=== PATIENT | female | born 1980 | race Caucasian/White ===

== ENCOUNTER 2017-05-08 05:20 | Day surgery (SDC) | payer MEDICAID ==
[2017-05-08] VITALS (12 sets, daily range): BP systolic 98–117; BP diastolic 57–72; PULSE 71–98; RESP 13–21; Ht 154.9 cm; Wt 83.4 kg
[~2017-05-08] VITALS: Ht 154.9 cm; Wt 83.4 kg
[2017-05-08] MEDS ORDERED: CEFAZOLIN 2 GM/50 ML (PMX) 50 ML IVPB SCH (06:00)
[2017-05-08] MEDS ORDERED: LACTATED RINGER'S 1,000 ML IV SCH (06:00)
[2017-05-08] MEDS ORDERED: ATROPINE 1 MG/10 ML SYRINGE IV PRN (06:30)
[2017-05-08] MEDS ORDERED: EPHEDrine SULFATE 50 MG/5 ML SYG IV PRN (06:30)
[2017-05-08] MEDS ORDERED: LABETALOL HCL 20MG INJ IV PRN (06:30)
[2017-05-08] MEDS ORDERED: ONDANSETRON 4 MG INJ IV PRN (06:30)
[2017-05-08] MEDS ORDERED: MEPERIDINE 25 MG INJ IV PRN (06:30)
[2017-05-08] MEDS ORDERED: OXYCODONE/ACETAMINOPHEN (5/325) TAB PO PRN ×2 (06:30)
[2017-05-08] MEDS ORDERED: hydrALAzine 20 MG INJ IV PRN (06:30)
[2017-05-08] MEDS ORDERED: FENTAnyl 50 MCG/ML VIAL IV PRN ×2 (06:30)
[2017-05-08] MEDS ORDERED: HYDROmorphONE (0.2 MG/ML) 10ML SYG IV PRN ×3 (06:30)
[2017-05-08] MEDS ORDERED: DIPHENHYDRAMINE 50 MG INJ IV PRN (06:30)
[2017-05-08] MEDS ORDERED: MIDAZOLAM 1 MG/ML 2 ML INJ IV PRN (06:30)
[2017-05-08] MEDS ORDERED: morphine (1 MG/ML) 10ML SYRINGE IV PRN ×3 (06:30)
[2017-05-08] MEDS ORDERED: ROCURONIUM 50 MG INJ ONE (06:33)
[2017-05-08] MEDS ORDERED: PROPOFOL 20 ML ONE (06:33)
[2017-05-08] MEDS ORDERED: LIDOCAINE 2% (SDV) 5 ML INJ ONE (06:33)
[2017-05-08] MEDS ORDERED: GLYCOPYRROLATE 0.4 MG INJ ONE (06:33)
[2017-05-08] MEDS ORDERED: NEOSTIGMINE 3 MG/3 ML SYRINGE ONE (06:34)
[2017-05-08] MEDS ORDERED: MIDAZOLAM 1 MG/ML 2 ML INJ ONE (06:34)
[2017-05-08] MEDS ORDERED: FENTAnyl 50 MCG/ML VIAL ONE (06:34)
[2017-05-08] MEDS ORDERED: DEXAMETHASONE 4 MG/ML 1 ML INJ ONE (06:35)
[2017-05-08] MEDS ORDERED: ONDANSETRON 4 MG INJ ONE (06:35)
[2017-05-08] MEDS ORDERED: CEFAZOLIN 1 GM INJ ONE (07:00)
[2017-05-08] MEDS ORDERED: KETOROLAC 30 MG INJ ONE (08:10)
--- NOTE | 2017-05-08 08:41 | OPR ---
Date/Time of Note Date/Time of Note DATE: 05/08/17 TIME: 08:38 Operative Report Procedure Date: May 08, 2017 Preoperative Diagnosis Patient desires permanent sterilization by Essure hysteroscopic sterilization program. Postoperative Diagnosis Patient desires permanent sterilization by Essure hysteroscopic sterilization program. Operation/Procedure Performed Essure hysteroscopic tubal ligation. Surgeon see signature line Poker Room Manager none Anesthesia Type: general Estimated Blood Loss: minimal Transfusion none Specimen none Grafts/Implants none Tubes/Drains none Complications none Pt Condition Post Procedure: stable Disposition: PACU Procedure Description FINDINGS: hyperplastic endometrium CONSENT: Please see the preop H and P consent that was done in my office. The risks, benefits, indications, alternatives of procedure including but not limited to risk of infection, bleeding, damage to other organs such as bowel or bladder, possibility that we may not be able to complete the procedure of Essure hysteroscopic technique, as well as possibility of failure of the procedure and accidental pregnancies were discussed with patient. The patient was also told that this procedure is permanent and irreversible and she will always retain the implants in her tubes, and the only way to remove the implants is by performing hysterectomy. She was allowed to ask questions, all her questions answered, informed consent was obtained. DESCRIPTION OF PROCEDURE: She was taken to operating room and general anesthesia induced. She was prepped and draped in the usual sterile fashion in dorsal lithotomy position. Surgical time-out was done. With the permission of the anesthesiologist, I started procedure by placing a tenaculum on the anterior lip of the cervix. Cervix was hydro dilated. The bilateral tubal ostia were visualized. The Essure implant was inserted into the right tube to the black line. It was wheeled back to a hard stop. The gold line was visualized and the implants were released. Three coils were visualized. Same procedure was done on the contralateral side, and 3 coils were also visualized. All instruments removed. There was no bleeding from tenaculum site. Patient tolerated the procedure well. REYNA ALTAMIRANO MD May 08, 2017 08:41
== END 2017-05-08 10:36 | disposition home or self-care (01) ==
LOC: SDS 05:20
PROVIDERS: ATTEND Specialist
DX: Z30.2 Encounter for sterilization (principal)
CPT/HCPCS: 58565; A4264; J0690; J1100; J1170; J1885; J2250; J2405; J2710; J3010; Z7512; Z7610

== ENCOUNTER 2018-01-08 13:08 | Emergency (ER) | END 2018-01-08 14:41 | disposition home or self-care (01) ==